=== PATIENT | male | born 1955 | race Caucasian/White ===

== ENCOUNTER 2019-09-04 13:25 | Outpatient (CLI) | payer MEDICARE, OTHER ==
[~2019-09-04] VITALS: Ht 172.7 cm; Wt 115.7 kg
[2019-09-04 14:03] LABS: BASOPHILS % (AUTO) 0 % (0-10); EOSINOPHILS # (AUTO) 0.1 10^3/uL (0.0-0.3); EOSINOPHILS % (AUTO) 2 % (0-10); HEMATOCRIT 37 % (40-54); LYMPHOCYTES # (AUTO) 1.6 X 10^3 (1.0-4.0); LYMPHOCYTES % (AUTO) 33 % (12-44); MEAN CORPUSCULAR HEMOGLOBIN 30 PG (25-34); MEAN CORPUSCULAR HGB CONC 33 G/DL (32-36); MEAN CORPUSCULAR VOLUME 91 FL (80-99); MEAN PLATELET VOLUME 9.2 FL (7.4-10.4); MONOCYTES # (AUTO) 0.3 X 10^3 (0.0-1.0); MONOCYTES % (AUTO) 5 % (0-12); NEUTROPHILS # (AUTO) 2.9 X 10^3 (1.8-7.8); NEUTROPHILS % (AUTO) 59 % (42-75); PLATELET COUNT 140 10^3/uL (130-400); RED CELL DISTRIBUTION WIDTH 13.5 % (10.0-14.5)
[2019-09-04 14:17] VITALS: BP 146/70
[2019-09-04 14:20] LABS: CALCIUM 9.6 MG/DL (8.5-10.1); CREATININE SERUM 1.41 MG/DL (0.60-1.30); POTASSIUM 4.4 MMOL/L (3.6-5.0)
[2019-09-04] MEDS ORDERED: OMEG1CAP58 PO (14:39)
[2019-09-04] MEDS ORDERED: POTA8CAP20 PO (14:39)
[2019-09-04] MEDS ORDERED: QUET25TA73 PO (14:39)
[2019-09-04] MEDS ORDERED: DULO60CA59 PO (14:39)
[2019-09-04] MEDS ORDERED: ASCO10006 PO (14:39)
[2019-09-04] MEDS ORDERED: LOSA100T57 PO (14:39)
[2019-09-04] MEDS ORDERED: RT-ALBUINH IH (14:39)
[2019-09-04] MEDS ORDERED: FLUT1DIS26 IH (14:39)
[2019-09-04] MEDS ORDERED: GLIM4TAB3 PO (14:39)
[2019-09-04] MEDS ORDERED: NFBIOT1000 PO (14:39)
[2019-09-04] MEDS ORDERED: AMLO5TAB9 PO (14:39)
[2019-09-04] MEDS ORDERED: GABA-488 PO (14:39)
[2019-09-04] MEDS ORDERED: UBID100C44 PO (14:39)
[2019-09-04] MEDS ORDERED: LORA10TA7 PO (14:39)
[2019-09-04] MEDS ORDERED: HYDR-3820 PO (14:39)
[2019-09-04] MEDS ORDERED: FURO40TA4 PO (14:39)
[2019-09-04] MEDS ORDERED: MULT-1056 PO (14:39)
[2019-09-04] MEDS ORDERED: ATOR80TA76 PO (14:39)
[2019-09-04] MEDS ORDERED: CHOL-6 PO (14:39)
[2019-09-04] MEDS ORDERED: FLUT9.9S NSEACH (14:39)
[2019-09-04] MEDS ORDERED: METO10TA3 PO (14:39)
[2019-09-04] MEDS ORDERED: RANI300T4 PO (14:41)
[2019-09-04] MEDS ORDERED: TRIA10.8 NSEACH (14:41)
[2019-09-04] MEDS ORDERED: TIOT18CA2 IH (14:41)
[2019-09-04] MEDS ORDERED: INSU300I3 SQ (14:41)
[2019-09-04] MEDS ORDERED: WARF7.5T49 PO (14:41)
[2019-09-04] MEDS ORDERED: WARF-48 PO (14:41)
--- NOTE | 2019-09-04 15:02 | Diagnostic Imaging Report ---
INDICATION: Preop for sinus surgery. TIME OF EXAM: 02:06 p.m. COMPARISON: No prior studies are available for comparison. FINDINGS: There appears to be a stent in the region of the SVC. Lungs demonstrate some mild basilar scarring or subsegmental atelectasis. A minimal density in the right upper lung field is indeterminate. This could represent a minimal infiltrate versus atelectasis or scarring. Left mid and upper lung kemp are clear. No effusion or pneumothorax is seen. IMPRESSION: Bibasilar atelectasis/scarring. There is an area of ill-defined density in the right upper lung field which could represent some minimal infiltrate versus scarring or atelectasis as well. Follow-up is recommended. Dictated by: Dictated on workstation # [id number]
== END 2019-09-04 14:15 | disposition home or self-care (01) ==
LOC: PREOP 13:25
PROVIDERS: ATTEND Otolaryngology Otolaryngology/Facial Plastic Surgery
DX: Z01.818 Encounter for other preprocedural examination (principal); J32.9 Chronic sinusitis, unspecified; J34.3 Hypertrophy of nasal turbinates
CPT/HCPCS: 36415; 71046; 80048; 85025; 87081; 93005

== ENCOUNTER 2019-09-11 07:06 | Day surgery (SDC) | payer MEDICARE, OTHER ==
[~2019-09-11] VITALS: Ht 172.7 cm; Wt 115.7 kg
[2019-09-11] VITALS (12 sets, daily range): BP systolic 121–161; BP diastolic 68–86
[~2019-09-11 07:06] MED LIST: AMLO5TAB9 PO; ASCO10006 PO; ATOR80TA76 PO; CHOL-6 PO; DULO60CA59 PO; FLUT1DIS26 IH; FLUT9.9S NSEACH; FURO40TA4 PO; GABA-488 PO; GLIM4TAB PO; HYDR-3820 PO; INSU300I3 SQ; LORA10TA7 PO; LOSA100T57 PO; METO10TA3 PO; MULT-1056 PO; NFBIOT1000 PO; OMEG1CAP58 PO; POTA8CAP20 PO; QUET25TA73 PO; RANI300T4 PO; RT-ALBUINH IH; TIOT18CA2 IH; TRIA10.8 NSEACH; UBID100C44 PO; WARF-48 PO; WARF7.5T49 PO
[2019-09-11] MEDS ORDERED: LACTATED RINGERS 1,000 ML IV PRN (07:38)
[2019-09-11] MEDS ORDERED: PHENYLEPHRINE 0.5% NASAL SPR (NEO-SYNEPHRINE) REG ONE (07:44)
[2019-09-11] MEDS ORDERED: LIDOCAINE/EPI 1%-1:100,000 (XYLOCAINE) 20ML ONE (07:44)
[2019-09-11] MEDS ORDERED: COCAINE HCL 4% 2 ML SYR ONE (07:44)
[2019-09-11] MEDS ORDERED: BSS 15 ML ONE (07:45)
[2019-09-11] MEDS ORDERED: AMPICILLIN/SULBACTAM INJECTION 1.5 GM in NS (IVPB) 100 ML IV ONE (07:45)
[2019-09-11] MEDS ORDERED: fentaNYL INJECTION 100 MCG/2 ML AMP IV ONE (08:00)
[2019-09-11 08:10] LABS: INR 1.1 (0.8-1.4); PROTHROMBIN TIME PATIENT 14.1 SEC (12.2-14.7)
[2019-09-11] MEDS ORDERED: ONDANSETRON 4 MG/2 ML (SDV) Z0FRAN ONE (08:34)
[2019-09-11] MEDS ORDERED: LIDOCAINE PF 2% 5 ML (XYLOCAINE) VIAL ONE (08:34)
[2019-09-11] MEDS ORDERED: proPOfol 200 MG/20 ML (DIPRIVAN) VIAL IV ONE ×2 (08:34→10:06)
[2019-09-11] MEDS ORDERED: MIDAZOLAM 2 MG/2 ML (VERSED) VIAL ONE (08:35)
[2019-09-11] MEDS ORDERED: fentaNYL INJECTION 100 MCG/2 ML AMP ONE (08:35)
--- NOTE | 2019-09-11 09:14 | Progress Note-Pre Operative ---
Pre-Operative Progress Note H&P Reviewed The H&P was reviewed, patient examined and no changes noted. Date Seen by Provider: Sep 11, 2019 Time Seen by Provider: 09:00 Date H&P Reviewed: Sep 11, 2019 Time H&P Reviewed: 09:00 Pre-Operative Diagnosis: Bilat Chronic Sinustis NINOSKA LEAL MD Sep 11, 2019 09:14 POS
[2019-09-11] MEDS ORDERED: SEVOFLURANE (ULTANE) 15 ML INHAL SOLN ONE ×2 (10:05→10:06)
[2019-09-11] MEDS ORDERED: ROCURONIUM 10 MG/ML 5 ML SYRINGE IV ONE (10:06)
--- NOTE | 2019-09-11 10:31 | Progress Note-Post Operative ---
Post-Operative Progess Note Surgeon (s)/Sheet Metal Supervisor (s) Surgeon NINOSKA LEAL MD Sheet Metal Supervisor n/a Pre-Operative Diagnosis Bilat Chronic Sinustis Post-Operative Diagnosis same Post-Op Procedure Note Date of Procedure: Sep 11, 2019 Name of Procedure Performed: Bilat ESS, Bialt Red of Inf Turbs Description & Findings Description and Findings: n/a Anesthesia Type get Estimated Blood Loss minimal Packing none. Specimen(s) collected/removed bilat chonric sinus disease NINOSKA LEAL MD Sep 11, 2019 10:31 POS
[2019-09-11] MEDS ORDERED: D5 1/2 NS W/KCL 20 MEQ/L 1,000 ML IV SCH (10:38)
[2019-09-11] MEDS ORDERED: HYDROcodone/APAP 5 MG/325 MG (LORTAB) TAB PO PRN (10:45)
[2019-09-11] MEDS ORDERED: HYDROmorphone 2 MG/ML VIAL (DILAUDID) IV ONE (10:45)
[2019-09-11] MEDS ORDERED: ACETAMINOPHEN 325 MG TABLET PO PRN (10:45)
[2019-09-11] MEDS ORDERED: PROMETHAZINE INJ 25 MG/ML (PHENERGAN) AMP IVP ONE (10:45)
[2019-09-11] MEDS ORDERED: morphine INJ 10 MG/ML 1ML (SYR OR VIAL) IVP ONE (10:45)
[2019-09-11] MEDS ORDERED: MEPERIDINE (DEMEROL) INJ 50 MG/ML IVP ONE (10:45)
[2019-09-11] MEDS ORDERED: ONDANSETRON 4 MG/2 ML (SDV) Z0FRAN IVP PRN (10:45)
[2019-09-11] MEDS ORDERED: HYDR-3812 PO (11:26)
[2019-09-11] MEDS ORDERED: AMOX500T2 PO (11:26)
--- NOTE | 2019-09-11 12:32 | Anesthesia-General Post-Op ---
General Patient Condition Mental Status/LOC: Same as Preop Cardiovascular: Satisfactory Nausea/Vomiting: Absent Respiratory: Satisfactory Pain: Controlled Complications: Absent Post Op Complications Complications None Follow Up Care/Instructions Patient Instructions None needed. Anesthesia/Patient Condition Patient Condition Patient is doing well, no complaints, stable vital signs, no apparent adverse anesthesia problems. No complications reported per nursing. ALONZO SCHNEIDER CRNA Sep 11, 2019 12:32 POS
== END 2019-09-11 12:45 | disposition home or self-care (01) ==
LOC: SDC 07:06
PROVIDERS: ATTEND Otolaryngology Otolaryngology/Facial Plastic Surgery
DX: J32.9 Chronic sinusitis, unspecified (principal); J34.3 Hypertrophy of nasal turbinates; J34.81 Nasal mucositis (ulcerative); R09.81 Nasal congestion; Z79.899 Other long term (current) drug therapy
CPT/HCPCS: 36415; 82962; 85610

== ENCOUNTER → 2019-12-07 | Outpatient (CLI) | payer MEDICARE, OTHER ==
[~2019-12-07] MED LIST changes: +AMOX500T2 PO; -GLIM4TAB PO; +GLIM4TAB3 PO; +HYDR-3812 PO
--- NOTE | 2019-12-07 12:42 | Diagnostic Imaging Report ---
INDICATION: Abnormal finding on previous chest radiograph. COMPARISON: 09/04/2019. FINDINGS: Frontal and lateral radiographic views of the chest are obtained and show borderline enlargement of the cardiac silhouette. Pulmonary vasculature is within normal limits. Metallic stent is also noted projecting lateral to the trachea on the right. Lungs show low inspiratory volumes, but are otherwise clear. There is no large effusion or pneumothorax. Osseous structures show no acute abnormalities. IMPRESSION: 1. Borderline enlargement of the cardiac silhouette, but no evidence of acute failure or focal infiltrate. Dictated by: Dictated on workstation # [id number]
== END ==
LOC: RAD 11:17
PROVIDERS: ATTEND Otolaryngology Otolaryngology/Facial Plastic Surgery
DX: J98.11 Atelectasis (principal); I51.7 Cardiomegaly
CPT/HCPCS: 71046